=== PATIENT | female | born 1955 | race Caucasian/White ===

== ENCOUNTER 2023-01-20 22:55 | Emergency (ER) | payer MEDICARE, BC, SELFPAY ==
[2023-01-20 22:56] VITALS: BP 128/64; PULSE 78; RESP 15; TEMP 36.8; O2SAT 99
--- NOTE | 2023-01-20 23:00 | DI.RAD_ITS ---
Exam(s) XR HUMERUS LT EXAM: XR HUMERUS LT CLINICAL HISTORY: suspect humeral fx. TECHNIQUE: 2D digital imaging was performed. COMPARISON: No exams were available for comparison FINDINGS: Four views. There is a comminuted displaced and angulated fracture in just above the midshaft of the humerus. Th ere is no dislocation glenohumeral joint. Distal humerus appears unremarkable. IMPRESSION: Comminuted displaced and angulated fracture of the midshaft level of the humerus. DATA REPOSITORY: RADIATION DOSE DELIVERED:
--- NOTE | 2023-01-20 23:04 | ED.GENADUL_ITS ---
Discharge Plan Disposition Condition: Good Discharge Details Chief Complaint: Orthopedic Clinical Impression: Closed left humeral fracture Primary Care Provider: [facility] Provider: Suman Rubio Home Meds and New Rx's Prescriptions: No Action sertraline 50 mg Tablet 50 mg amlodipine 5 mg Tablet 5 mg hydrochlorothiazide 12.5 mg Capsule 12.5 mg Discharge Instructions Instructions: Arm Fracture in Adults (ED) Additional Instructions: At this time you have a mid shaft humerus fracture. Your nerves are intact still based on exam. He is having 90% chance of healing without surgery, however there is a 10% chance that surgical intervention may be needed. Please keep the cuff and collar splint on at all times. Please follow-up closely with the visual merchandising specialist in [place] for repeat x-ray and follow-up in the next 1 to 2 weeks. You can take Tylenol and Motrin as needed for pain. Maximum doses of Tylenol at 1000 mg every 6 hours and the maximum doses of Motrin are 800 mg every 6 hours. Please take these with food. It may be reasonable to take an antacid medication while on these to prevent any stomach irritation. If you notice any worsening of your symptoms, or any new symptoms such as vomiting, diarrhea, fever, chills, shortness of breath, chest pain, numbness, weakness, or fainting , please return immediately to the emergency department for reevaluation. Please follow up with your primary care provider as soon as possible for reassessment and reevaluation. As always, it was a pleasure participating in your medical care today. Medical Decision Making 67-year-old female with past medical history of hypertension per who is right-hand dominant presents today for left shoulder/arm pain. Patient states that she was walking on the grass was slippery she fell and slipped onto her left shoulder. She had immediate pain. EMS was called and she was brought to the ER for further assessment. Deformity was noted in her left shoulder/humerus. Patient does admit to having a few beers and some mixed drinks tonight. She admits to pain in the proximal humerus. She denies any elbow pain or hand pain. She recalls the event. She denies hitting her head. She denies any pain in her chest abdomen pelvis or other extremities. No other complaints at this time. No other modifying factors. Exam demonstrates bruising and deformity in the proximal humerus. Concern for humeral neck fracture versus less likely dislocation. Will give Tylenol Motrin for pain, keep the patient in a sling, get an x-ray, monitor closely and reassess. The remainder of her exam shows no other clinical evidence of significant trauma. Historically she also denies any other trauma. No indication for other imaging at this time based on current clinical and objective physical exam and assessment. 12:23 AM X-ray images show evidence of an acute comminuted fracture of the mid humerus. Patient was placed in cuff and collar splint and had notable resolution of pain and symptoms. Repeat exam shows excellent movement of the hand, thumb, and wrist. Review of innervated structures in the hand demonstrates no deficits for weakness or sensation. Good pulses. Brisk capillary refill. Case was reviewed with on-call orthopedics. Recommendations are for follow-up with orthopedics on an outpatient basis in [place]. No other additional emergent recommendations. Discussed red flags for which to return. I have extensively reviewed the treatment plan and discharge instructions with the patient. I have addressed all patient concerns at this time. The patient was made aware of what symptoms to monitor for that would warrant a return to the emergency department. Discussed the plan with the patient, they demonstrate verbal understanding and agreement with our assessment and plan at this time. The documentation in this chart was dictated using [employer] dictation software. Please excuse any dictation errors. FINDINGS: Bones/joints: The acute comminuted fracture of the mid humeral diaphysis with a severe apex anterolateral angulation and greater than 1 shaft with AP distraction is similar to recent imaging. Soft tissues: Soft tissue swelling surrounding the fracture site. IMPRESSION: The acute comminuted fracture of the mid humeral diaphysis with a severe apex anterolateral angulation and greater than 1 shaft with AP distraction is similar to recent imaging. Thank you for allowing us to participate in the care of your patient. Dictated and Authenticated by: Aysha Hopkins MD 01/21/2023 12:03 AM Eastern Time ([place] & [place]) HPI General Date/Time Provider Initiated Documentation: 01/20/23 23:03 . HPI Narrative: 67-year-old female with past medical history of hypertension per who is right-hand dominant presents today for left shoulder/arm pain. Patient states that she was walking on the grass was slippery she fell and slipped onto her left shoulder. She had immediate pain. EMS was called and she was brought to the ER for further assessment. Deformity was noted in her left shoulder/humerus. Patient does admit to having a few beers and some mixed drinks tonight. She admits to pain in the proximal humerus. She denies any elbow pain or hand pain. She recalls the event. She denies hitting her head. She denies any pain in her chest abdomen pelvis or other extremities. No other complaints at this time. No other modifying factors. Related Data Home Medications Medication Instructions Recorded Confirmed amlodipine 5 mg tablet 5 mg 01/20/23 hydrochlorothiazide 12.5 mg capsule 12.5 mg 01/20/23 sertraline 50 mg tablet 50 mg 01/20/23 Allergies Allergy/AdvReac Type Severity Reaction Status Date / Time No Known Allergies Allergy Unverified 01/20/23 23:06 General Stated Complaint: Orthopedic VITO: 3 Review of Systems All systems reviewed & are unremarkable except as noted in HPI and below PFSH All Active Problems (Updated 01/21/23 @ 00:32 by Suman Rubio DO) Closed left humeral fracture (Acute) Social History Smoking/Tobacco Use Status: Never Smoking risk assessment performed?: Yes Alcohol Intake: current Alcohol Intake frequency: holidays/special occasions only Alcohol type: beer, wine and hard liquor Substance use type: does not use Do you feel safe at home: Yes Do you feel safe in your relationship?: Yes Exam Narrative Exam Narrative: 1.Const: Well-nourished, Well-developed, appearing stated age 2.Eyes: PERRL, no conjunctival injection, and symmetrical lids. 3.ENT: Atraumatic external nose and ears. Moist MM. Neck: Symmetric, trachea midline, No thyromegaly. There is no evidence of raccoon eyes, allen sign, CSF rhinorrhea, mastoid tenderness, cranial crepitus, hemotympanum, exophthalmos, or hyphema. Patient demonstrates intact dentition with no signs of tooth avulsion or fracture, no signs of jaw deformity, no evidence of a LeFort's fracture, with an intact palate, nose and orbital region. There is no evidence of a nasal septal hematoma. No proptosis. Jaw closes symmetrically. Airway is clear. 4.CVS: +S1/S2, No murmurs or gallops. Peripheral pulses 2+ and equal in all extremities. Brisk capillary refill in all extremities. Regular rate and rhythm, Normal s1 and s2. No murmurs, carotid bruits, rubs, or gallops. Radial pulses 2+ bilaterally and symmetric. Dorsalis pedis pulses 2+ bilaterally and symmetric. 2+ capillary refill. No evidence of distant heart sounds. No extremity edema. No evidence of gross hemorrhage. 5.RESP: Unlabored respiratory effort. Clear to auscultation bilaterally. No wheezes rales or rhonchi airway clear, no obstructions. No abrasions or ecchymosis. Chest movement symmetric with respirations. No chest wall tenderness. Trachea midline. No crepitus. No step offs. No paradoxical movements. Lungs are clear to auscultation bilaterally. No rales, rhonchi, wh eezing or stridor. Breath sound symmetric. No Sucking chest wounds. No clinical evidence of significant chest trauma. 6.GI: Soft, Nontender/Nondistended, No hepatosplenomegaly. No guarding or rebou nd. Soft, nondistended, nontender. Bowel tones normoactive. No masses or organomegaly. No ecchymosis or abrasions. No periumbilical ecchymosis or seatbelt sign. No flank or CVA tenderness. No clinical signs of significant trauma. No clinical evidence of significant abdominal trauma. 7.MSK: N patient's left upper extremity demonstrates swelling and bruising over the proximal left humerus. No pain at the elbow hand or wrist. No pain at the clavicle or AC joint. Right upper extremity demonstrates no tenderness or deformity. No midline cervical thoracic or lumbar spine tenderness. No thor acic tenderness. Patient demonstrates good movement at the elbow, good real estate director strength of the hand. Patient demonstrates normal neurovascular exam in the left upper extremity. 8.Skin: Warm, Dry. No rashes or lesions. 9.Neuro: specialty department supervisor II-XII grossly intact. Sensation grossly intact, no focal neurologic deficits. 10.Psych: (AAO) x3. Appropriate mood and affect Course Vital Signs Vital signs: Vital Signs Temperature 36.8 C 01/20/23 22:56 Pulse 78 01/20/23 22:56 Respiratory Rate 15 01/20/23 22:56 Blood Pressure 128/64 01/20/23 22:56 Pulse Oximetry 99 01/20/23 22:56 Temperature 36.8 C 01/20/23 22:56 Temperature Source Oral 01/20/23 22:56 Pulse 78 01/20/23 22:56 Respiratory Rate 15 01/20/23 22:56 Blood Pressure 128/64 01/20/23 22:56 Pulse Oximetry 99 01/20/23 22:56 Oxygen Delivery Method Room Air 01/20/23 22:56 Oxygen Flow Rate 0 01/20/23 22:56 Pain Level 5 01/20/23 22:56
[2023-01-20] MEDS: ACETAMINOPHEN 1,000 MG/100 ML BTL 400 MG IVPB (23:09)
[2023-01-20] MEDS: Ibuprofen 800 MG TAB PO (23:09)
--- NOTE | 2023-01-21 00:03 | DI.VRAD_ITS ---
PROCEDURE INFORMATION: Exam: XR Left Humerus Exam date and time: 01/20/2023 23:26 Age: 67 years old Clinical indication: Injury or trauma; Other: Suspect FX TECHNIQUE: Imaging protocol: Radiologic exam of the left humerus. Views: 2 or more views. COMPARISON: CR XR HUMERUS LT 01/20/2023 23:24 FINDINGS: Bones/joints: The acute comminuted fracture of the mid humeral diaphysis with a severe apex anterolateral angulation and greater than 1 shaft with AP distraction is similar to recent imaging. Soft tissues: Soft tissue swelling surrounding the fracture site. IMPRESSION: The acute comminuted fracture of the mid humeral diaphysis with a severe apex anterolateral angulation and greater than 1 shaft with AP distraction is similar to recent imaging. Dictated and Authenticated by: Aysha Hopkins MD. Ordering:JACQUELYN Will MD
--- NOTE | 2023-01-21 00:52 | NUR.NOTE ---
Sling assessed by provider and this RN, sensation, cap refill and pulses distal to injury WDL, pt verbalizes understanding of discharge instructions, accompanied and driven home by family members.
--- NOTE | 2023-01-24 10:20 | NUR.NOTE ---
Nursing Note: Accessed pt chart for [facility] information for billing.
== END 2023-01-21 00:55 | disposition home or self-care (01) ==
PROVIDERS: Emergency Provider Student in an Organized Health Care Education/Training Program
DX: S42.352A Displaced comminuted fracture of shaft of humerus, left arm, initial encounter for closed fracture (principal); I10 Essential (primary) hypertension; W18.39XA Other fall on same level, initial encounter; Y93.89 Activity, other specified; Y92.89 Other specified places as the place of occurrence of the external cause; Y99.9 Unspecified external cause status
CPT/HCPCS: 96365; 99283; 73060; J0131